=== PATIENT | male | born 1950 | race Caucasian/White ===

== ENCOUNTER 2022-03-05 11:34 | Emergency (ER) | payer MEDICARE ==
[2022-03-05] VITALS (14 sets, daily range): BP systolic 117–211; BP diastolic 68–103
[~2022-03-05] VITALS: Ht 177.8 cm; Wt 90.7 kg
[2022-03-05 12:03] LABS: HEMATOCRIT 44.7 % (39.0-50.0); HEMOGLOBIN 15.5 g/dl (14.0-18.0); IMMATURE GRANULOCYTES 0.3 % (0.0-5.0); MEAN CELL VOLUME 86.1 fL CALC (80.0-100.0); MEAN CORPUSCULAR HGB 29.9 pG CALC (26.0-32.0); MEAN CORPUSCULAR HGB CONC 34.7 g/dL CAL (32.0-36.0); NEUT# 8.16 thou/uL (1.82-7.42); RED BLOOD COUNT 5.19 mill/uL (4.70-6.10); RED CELL DISTRI WIDTH 12.6 % (11.5-15.5)
[2022-03-05 12:04] LABS: URINE BILIRUBIN - DIPSTICK NEGATIVE (NEGATIVE); URINE BLOOD DIPSTICK LARGE (NEGATIVE); URINE COLOR YELLOW; URINE GLUCOSE - DIPSTICK NEGATIVE (NEGATIVE); URINE KETONE 15 mg/dL (NEGATIVE); URINE LEUK ESTERASE NEGATIVE (NEGATIVE); URINE PROTEIN - DIPSTICK 30 mg/dL (NEG-TRACE); URINE SPECIFIC GRAVITY >=1.030; URINE UROBILINOGEN - DIPSTICK 0.2 E.U./dL (0.2)
[2022-03-05 12:06] LABS: URINE NITRITE - DIPSTICK NEGATIVE (Negative)
[2022-03-05 12:12] LABS: ALBUMIN 4.6 g/dL (3.2-5.0); CREATININE 1.6 mg/dL (0.7-1.3); POTASSIUM 4.1 mmol/l (3.5-5.1); TOTAL PROTEIN 8.1 g/dL (6.3-8.2)
[2022-03-05 12:14] LABS: URINE WBC 0-2 WBC/hpf (0-5)
[2022-03-05] MEDS ORDERED: PLAVIX75 MG PO (12:29)
[2022-03-05] MEDS ORDERED: CRESTOR20 MG PO (12:30)
[2022-03-05] MEDS ORDERED: TOPROL XL50 MG PO (12:30)
[2022-03-05] MEDS ORDERED: TELMISARTAN40 MG PO (12:31)
[2022-03-05] MEDS ORDERED: PERCOCET1 TA2 PO (12:31)
[2022-03-05] MEDS ORDERED: TAMSULOSIN0.4 MG PO (14:35)
[2022-03-05] MEDS ORDERED: LORTAB 1010 MG PO (14:35)
[2022-03-05] MEDS ORDERED: TORADOL PO (14:35)
== END 2022-03-05 15:00 | disposition home or self-care (01) ==
LOC: ED 11:34
PROVIDERS: Family Medicine
DX: N13.2 Hydronephrosis with renal and ureteral calculous obstruction (principal); N21.0 Calculus in bladder; I10 Essential (primary) hypertension; I25.2 Old myocardial infarction; Z95.1 Presence of aortocoronary bypass graft; Z87.442 Personal history of urinary calculi